=== PATIENT | female | born 1970 ===

== ENCOUNTER → 2018-09-04 09:14 | Day surgery (SDC) | payer MEDICARE, MEDICAID ==
[~2018-09-04 09:14] MED LIST: Acetaminophen TAB* 325 MG PO PRN; Buffered Lidocaine 1% SYRIN* 1 ML/SYRINGE INTRADERM ONE; Cisatracurium* 2 MG/ML MDV 5 ML ONE; Dexamethasone IV* 4 MG/ML 1 ML (4 MG) ONE; DiMENhydriNATE IV* 50 MG/ML VIAL IV PUSH PRN; EPINEPHRINE 1 MG/ML 1 ML VIAL ONE; Famotidine IV* 10 MG/ML 2 ML (20 mg) ONE; Glycopyrrolate IV* 0.2 MG/ML 1 ML VIAL ONE; HYDROcodone/ACETAMIN 5-325 MG* 1 TAB PO PRN; KETAMINE HCL* 50 MG/ML 10 ML VIAL ONE; Lactated Ringers 1000 ML Bag* 1,000 ML IV SCH; Levalbuterol 0.63MG/3ML NEB* UNIT OF USE INH ONE; Levalbuterol 0.63MG/3ML NEB* UNIT OF USE INH PRN; Lidocain 1% EPI 1:100,000 * 30 ML MDV ONE; Lidocaine 2% PF * 5 ML VIAL ONE; Midazolam* 1 MG/ML 2 ML VIAL (2 MG) ONE; Midazolam* 1 MG/ML 5 ML VIAL (5 MG) ONE; Naloxone* 0.4 MG/ML 1 ML VIAL IV PRN; Neostigmine Methylsulfate* 1 MG/ML 10 ML VIAL (1 mg/ml) ONE; Ondansetron INJ* 2 MG/ML VIAL IV PRN; Ondansetron INJ* 2 MG/ML VIAL ONE; PROCHLORPERAZINE INJ 5 MG/ML 2 ML VIAL IV PRN; Propofol* 10 MG/ML 20 ML BTL ONE; Succinylcholine* 20 MG/ML 10 ML VIAL ONE; Triamcinolone Acetonide* 40 MG/ML 1 ML VIAL ONE; diPHENhydraMINE IV* 50 MG/ML 1 ml VIAL (BENADRYL) IV PRN; fentaNYL* 50 MCG/ML 2 ML VIAL (100 MCG VIAL) IV PRN; fentaNYL* 50 MCG/ML 2 ML VIAL (100 MCG VIAL) ONE
[2018-09-04 14:23] VITALS: BP 126/64
--- NOTE | 2018-09-04 19:58 | OP ---
DATE OF OPERATION: 09/04/18 - SDS DATE OF : 66 SURGEON: Cooper Lynn MD PRE-OP DIAGNOSIS: Vallecular cyst with dysphagia. POST-OP DIAGNOSIS: Vallecular cyst with dysphagia. OPERATIVE PROCEDURE: Suspension laryngoscopy, microscopy, excision of vallecular cyst. BRIEF HISTORY: This is a 48-year-old female with a large vallecular cyst, observation did not resolve. The patient was symptomatic, elected for surgical excision. DESCRIPTION OF PROCEDURE: The patient was taken to the operating room, general anesthesia was given, the patient was intubated. Larynx was suspended, microscope was utilized. Cupped forceps were used for grasping the vallecular cyst. Careful biopsy forceps and scissors were used to resect that at the vallecula. Specimen was sent. Base was cauterized and the patient was then awakened, extubated and sent to the recovery room in stable condition. Instrument and sponge counts were correct. Blood loss minimal. Specimen sent was a vallecular cyst. [id number]/[facility] #: [id number] [facility] HE[facility] SYSTEMAmy
== END | disposition home or self-care (01) ==
LOC: OR 09:14
PROVIDERS: ATTEND Otolaryngology
DX: J38.7 Other diseases of larynx (principal); K11.6 Mucocele of salivary gland; R13.10 Dysphagia, unspecified
CPT/HCPCS: 88304; J0330; J1100; J2250; J2405; J2704; J2710; J3010; J3301